=== PATIENT | female | born 1955 | race Caucasian/White ===

== ENCOUNTER 2017-06-21 17:38 | Emergency (ER) | END 2017-06-21 22:19 | disposition home or self-care (01) ==

== ENCOUNTER 2018-07-13 18:05 | Inpatient (IN) | payer OTHER ==
[~2018-07-13] VITALS: Ht 162.6 cm; Wt 90.0 kg
[~2018-07-13 18:05] MED LIST: HYDR-4011 PO; IBUP800T48 PO
[2018-07-13] MEDS ORDERED: SODIUM CHLORIDE 0.9% 1L BAG IV* STA (18:26)
[2018-07-13] MEDS ORDERED: morphine 4 MG/ML VIAL IV STA (18:26)
[2018-07-13] MEDS ORDERED: ONDANSETRON 4 MG INJ IV STA (18:26)
[2018-07-13] MEDS ORDERED: ACETAMINOPHEN 325 MG TAB PO STA (18:26)
[2018-07-13] MEDS ORDERED: IBUPROFEN 800 MG TAB PO ONE (18:30)
--- NOTE | 2018-07-13 18:49 | ERD ---
ER Documentation Chief Complaint Chief Complaint bodyache, flu like symptoms with nausea HPI This is a 62-year-old female with a past medical history of hypertension who presents to the emergency department with 48-hour history of generalized myalgias, nausea, runny nose, nonproductive cough. She states she had a decrease in appetite. She has had a tactile fever with shaking and chills. She took Tylenol Cold and flu just prior to arrival. She said no recent travel. She denies any shortness of breath at rest or exertion. She stated above has felt nauseous but has not experienced any hemoptysis hematemesis no melanotic st ools. She denies any recent sick contacts and no recent hospitalizations. She denies any chest pain. She does state she has a bandlike headache that started after she developed a tactile fever. She states this is not the worst headache of her life. The patient does state however that she felt very lightheaded and felt as though she was in a pass out but denied a complete transient loss of con sciousness. ROS All systems reviewed and are negative except as per history of present illness. Medications Home Meds Active Scripts Hydrocodone/Acetaminophen ([place] 5-325 Tablet) 1 Each Tablet, 1 TAB PO Q6H PRN for PAIN, #20 TAB Prov:ANASTACIO MACHADO PA-C 06/21/17 Ibuprofen* (Motrin*) 800 Mg Tab, 800 MG PO Q6, #30 TAB Prov:ANASTACIO MACHADO PA-C 06/21/17 PMhx/Soc History of Surgery: No Anesthesia Reaction: No Hx Respiratory Disorders: No Hx Cardiac Disorders: Yes (HTN) Hx Psychiatric Problems: No Hx Miscellaneous Medical Probl: Yes Hx Alcohol Use: No Hx Substance Use: No Hx Tobacco Use: No Physical Exam Vitals Vital Signs Date Temp Pulse Resp B/P (MAP) Pulse Ox O2 O2 Flow FiO2 Time Delivery Rate 07/13/18 98.3 88 22 152/78 98 Room Air 2.0 19:30 (102) 07/13/18 98.3 95 20 194/93 96 18:07 (126) Physical Exam Constitutional:Well-developed. Well-nourished. HEENT:Normocephalic. Atraumatic.Pupils were equal round reactive to light. Very dry mucous membranes.No tonsillar exudates. Neck: No nuchal rigidity. No lymphadenopathy. No posterior cervical spine tenderness or step-offs. Respiratory: Not using accessory muscles of respiration.Lungs were clear to auscultation bilaterally. No rhonchi. No rales. No wheezing. Cardiovascular: Regular rate regular rhythm.No murmurs. No rubs were appreciated.S1, S2 normal. Distal pulses are palpable 2+ bilaterally. GI: Abdomen was soft. Nontender. Non Distended. No pulsatile abdominal masses or bruits. No rebound. No guarding. Bowel sounds were present and normal. Muscle skeletal: Full range of motion of both the upper and lower extremities bilaterally.Normal muscle tone.No assymetrical calf tenderness or swelling. Skin: No petechia, no purpura. No lesions on the palms or the soles of the feet. No maculopapular rash. NEURO: Patient was alert, awake, orientated x3.No facial droop. Gait observed and normal with no ataxia.Speech had regular rate and rhythm. No focal neurological deficits. Result Diagram: 07/13/18193607/13/181936 Results 24 hrs Laboratory Tests Test 07/13/18 19:37 07/13/18 19:45 07/13/18 21:15 White Blood Count 3.8 10^3/ul Red Blood Count 4.89 10^6/ul Hemoglobin 13.6 g/dl Hematocrit 41.0 % Mean Corpuscular Volume 83.8 fl Mean Corpuscular Hemoglobin 27.8 pg Mean Corpuscular 33.2 g/dl Hemoglobin Concent Red Cell Distribution Width 13.1 % Platelet Count 159 10^3/UL Mean Platelet Volume 11.5 fl Immature Granulocytes % 0.800 % Neutrophils % 79.5 % Lymphocytes % 10.5 % Monocytes % 8.4 % Eosinophils % 0.3 % Basophils % 0.5 % Nucleated Red Blood Cells % 0.0 /100WBC Immature Granulocytes # 0.030 10^3/ul Neutrophils # 3.0 10^3/ul Lymphocytes # 0.4 10^3/ul Monocytes # 0.3 10^3/ul Eosinophils # 0.0 10^3/ul Basophils # 0.0 10^3/ul Nucleated Red Blood Cells # 0.0 10^3/ul Prothrombin Time 13.4 Sec Prothrombin Time Ratio 1.0 INR International 1.01 Normalized Ratio Activated Partial Thromboplast 33.8 Sec Time Sodium Level 132 mmol/L Potassium Level 2.9 mmol/L Chloride Level 94 mmol/L Carbon Dioxide Level 28 mmol/L Anion Gap 10 Blood Urea Nitrogen 8 mg/dl Creatinine 0.58 mg/dl Est Glomerular Filtrat > 60 mL/min Rate mL/min Glucose Level 120 mg/dl Calcium Level 9.2 mg/dl Total Bilirubin 0.3 mg/dl Direct Bilirubin 0.00 mg/dl Indirect Bilirubin 0.3 mg/dl Aspartate Amino 27 IU/L Transf (AST/SGOT) Alanine 19 IU/L Aminotransferase (ALT/SGPT) Alkaline Phosphatase 78 IU/L Troponin I < 0.012 ng/ml Total Protein 7.5 g/dl Albumin 4.3 g/dl Globulin 3.20 g/dl Albumin/Globulin Ratio 1.34 Amylase Level 61 U/L Lipase 56 U/L POC Venous Lactate 1.1 mmol/L Urine Color YELLOW Urine Clarity CLEAR Urine pH 5.0 Urine Specific [place] 1.009 Urine Ketones TRACE mg/dL Urine Nitrite NEGATIVE mg/dL Urine Bilirubin NEGATIVE mg/dL Urine Urobilinogen NEGATIVE mg/dL Urine Leukocyte Esterase NEGATIVE Leyda/ul Urine Microscopic RBC 2 /HPF Urine Microscopic WBC 1 /HPF Urine Mucus FEW /HPF Urine Hemoglobin 2+ mg/dL Urine Glucose NEGATIVE mg/dL Urine Total Protein NEGATIVE mg/dl Current Medications Medications Dose Sig/Anabel Start Time Status Last (Trade) Ordered Route PRN Stop Time Admin Dose Reason Admin Sodium 2,700 ml BOLUS OVER 2 07/13/18 DC 07/13/18 Chloride HOURS STAT 18:26 18:50 (NS) IV* 07/13/18 18:29 650 mg ONCE STAT 07/13/18 DC 07/13/18 Acetaminophen PO 18:26 18:52 (Tylenol 07/13/18 18:29 Tab) Morphine 4 mg ONCE STAT 07/13/18 DC 07/13/18 Sulfate IV 18:26 18:51 (morphine) 07/13/18 18:29 Ondansetron 4 mg ONCE STAT 07/13/18 DC 07/13/18 HCl (Zofran IV 18:26 18:51 Inj) 07/13/18 18:29 Ibuprofen 800 mg ONCE ONCE 07/13/18 DC 07/13/18 (Motrin) PO 18:30 18:52 07/13/18 18:31 Potassium 100 ml @ ONCE ONCE 07/13/18 07/13/18 Chloride 50 mls/hr IVPB 20:30 21:32 07/13/18 22:29 Ondansetron 4 mg ER BRIDGE 07/13/18 HCl (Zofran PRN IV 22:00 Inj) NAUSEA AND/OR 07/14/18 21:59 VOMITING 650 mg ER BRIDGE 07/13/18 Acetaminophen PRN PO MILD 22:00 (Tylenol PAIN(1-3)OR 07/14/18 21:59 Tab) ELEVATED TEMP Procedures/MDM The patient presented to the emergency department with symptoms suggestive of a near syncope episode as well as a upper respiratory infectionn the differential diagnosis of syncope is vast but my workup considered common benign disorders to life-threatening processes. Therefore my differential diagnosis included but was not limited to reflex-mediated syncope such as vasovagal or carotid sinus syncope from coughing, sneezing, micturition, or GI stimulation (eg, defecation). Other etiologies in my workup included orthostatic hypotension which could cause syncope from an abrupt drop in venous return to heart from volume depletion. An EKG and cardiac enzymes were obtained to rule out cardiac arrhythmias or ischemia. Cardiopulmonary disease such as valvular disease, hypertrophic cardiomyopathy, pericardial tamponade, or pulmonary embolism were considered as a factor causing the patients syncope episode. The patient had no difference in blood pressure in both arms that could suggest aortic dissection or subclavian steal syndrome. Rectal exam was negative for fecal occult blood that could suggest GI bleeding. Ancillary laboratory work was obtained to evaluate for metabolic or electrolyte abnormalities. The patient had no witnessed brief tonic movements that could suggest postictal confusion. The patient was placed on a electronic device monitor, continuous pulse oximetry and IV access established by nursing staff. Patient showed signs of clinical dehydration and was given a 30 cc/kg bolus of normal saline as the patient did have Sirs criteria. However there is no evidence of sepsis. The patient was hypokalemic with potassium 2.9. She was supplemented with IV potassium. I obtained a chest radiograph which showed no infiltrates no pneumothorax or pleural effusion. Given the patient's symptoms with a near-syncope episode and remote history of a cerebrovascular accident that required TPA several years prior to arrival I did feel is necessary to obtain a CT scan of the patient's head. The patient had no focal neurological deficits to suggest strokelike symptoms. CT of the head reviewed by myself the radiologist indicate the following: I obtained a 12-lead EKG tracing to rule out for atypical myocardial infarction. 12 Lead EKG tracing ordered and reviewed by myself showed: Normal sinus rhythm of 92 bpm and no arrhythmia. AR interval normal. QRS duration normal. No ST segment elevation No ST segment depression. No changes consistent with acute ischemia. Departure Diagnosis: Primary Impression: Influenza-like symptoms Additional Impressions: Hypokalemia Near syncope Condition: FRACISCO Claros MD Jul 13, 2018 18:49
[2018-07-13] MEDS ORDERED: POTASSIUM CHLORIDE 100 ML IVPB ONE (20:30)
[2018-07-13 22:00] VITALS: PULSE 79
[2018-07-13] MEDS ORDERED: ACETAMINOPHEN 325 MG TAB PO PRN (22:00)
[2018-07-13] MEDS ORDERED: HYDROCODONE/APAP (5/325) TAB PO PRN (22:00)
[2018-07-13] MEDS ORDERED: ALBUTEROL/IPRATROPIUM (NEB) 3 ML AMP HHN PRN (22:00)
[2018-07-13] MEDS ORDERED: ONDANSETRON 4 MG INJ IV PRN ×2 (22:00)
[2018-07-13] MEDS ORDERED: NACL 0.9% 3 ML SYG IV SCH (22:00)
[2018-07-13] MEDS: ACETAMINOPHEN 325 MG TAB PO PRN (22:55)
--- NOTE | 2018-07-13 23:07 | HP ---
Date/Time of Note Date/Time of Note DATE: 07/13/18 TIME: 23:07 Assessment/Plan VTE Prophylaxis Pharmacological prophylaxis: heparin Lines/Catheters IV Catheter Type (from Nrsg): Saline Lock Assessment/Plan Assessment/Plan 1. Near Syncope, Lightheadedness/dizziness -Multifactorial etiology, including elevated blood pressure, decreased p.o. intake/vomiting -Head CT shows calcified left frontal lesion, which I believe corresponds to the patient's known left frontal hemangioma -Plan is to monitor in the telemetry unit. Obtain 2D echo, carotid Doppler ultrasound and MRI of the brain -will hydrate -Replace potassium -will send additional troponin 2. URI, most likely viral -Supportive care for now. I do not believe antibiotic is warranted at this time 3. Hypertensive urgency: BP better controlled -Continue home meds. Adjust as needed 5. Bilious vomiting: This could be related to lightheadedness/dizziness contributed from #2 -Check KUB to eval for ileus versus very less likely SBO. No BM X 2 days, which is most likely from decreased appetite 6. History of CVA 4 years ago, with residual light lower extremity numbness. On physical exam, he noted also slightly decreased strength -Patient able to ambulate without difficulty according to her and the daughter -Follow-up MRI of the brain -PT eval -Continue aspirin -Check lipid profile. Patient may benefit from statin given her history of CVA event of lipid profile is WNL. Daytime team to decide 7. History of left frontal meningioma -No acute issue 8. History of migraine headache: Currently not complaining of headache -PRN pain meds 9. Hypokalemia: replete Result Diagram: 07/13/18193607/13/181936 Results 24hrs Laboratory Tests Test 07/13/18 19:37 07/13/18 19:45 07/13/18 21:15 White Blood Count 3.8 L Red Blood Count 4.89 Hemoglobin 13.6 Hematocrit 41.0 Mean Corpuscular Volume 83.8 Mean Corpuscular Hemoglobin 27.8 L Mean Corpuscular Hemoglobin Concent 33.2 Red Cell Distribution Width 13.1 Platelet Count 159 Mean Platelet Volume 11.5 H Immature Granulocytes % 0.800 H Neutrophils % 79.5 H Lymphocytes % 10.5 L Monocytes % 8.4 Eosinophils % 0.3 Basophils % 0.5 Nucleated Red Blood Cells % 0.0 Immature Granulocytes # 0.030 Neutrophils # 3.0 Lymphocytes # 0.4 L Monocytes # 0.3 Eosinophils # 0.0 Basophils # 0.0 Nucleated Red Blood Cells # 0.0 Prothrombin Time 13.4 Prothrombin Time Ratio 1.0 INR International Normalized Ratio 1.01 Activated Partial Thromboplast Time 33.8 Sodium Level 132 L Potassium Level 2.9 *L Chloride Level 94 L Carbon Dioxide Level 28 Anion Gap 10 Blood Urea Nitrogen 8 Creatinine 0.58 Est Glomerular Filtrat Rate mL/min > 60 Glucose Level 120 Calcium Level 9.2 Total Bilirubin 0.3 Direct Bilirubin 0.00 Indirect Bilirubin 0.3 Aspartate Amino Transf (AST/SGOT) 27 Alanine Aminotransferase (ALT/SGPT) 19 Alkaline Phosphatase 78 Troponin I < 0.012 Total Protein 7.5 Albumin 4.3 Globulin 3.20 Albumin/Globulin Ratio 1.34 Amylase Level 61 Lipase 56 POC Venous Lactate 1.1 Urine Color YELLOW Urine Clarity CLEAR Urine pH 5.0 Urine Specific [place] 1.009 Urine Ketones TRACE A Urine Nitrite NEGATIVE Urine Bilirubin NEGATIVE Urine Urobilinogen NEGATIVE Urine Leukocyte Esterase NEGATIVE Urine Microscopic RBC 2 Urine Microscopic WBC 1 Urine Mucus FEW A Urine Hemoglobin 2+ H Urine Glucose NEGATIVE Urine Total Protein NEGATIVE HPI/ROS Admit Date/Time Admit Date/Time Jul 13, 2018 at 21:48 Hx of Present Illness This is a 62-year-old female with a history of hypertension, CVA 4 years ago with residual right lower extremity numbness, left frontal meningioma, migraine headache, psoriasis. Patient was brought to the ER complaining of dizziness/lightheadedness X 1 months, cough occasionally productive of white sputum, sore throat and bilious vomiting X 3 days. She complains that the lightheadedness was severe enough for her that she felt she was about to faint but she never lost consciousness. Patient is accompanied by her daughter who also provided history and help with translation. Systolic blood pressure at [facility] today was around 220. Patient reported being compliant with her medications. Denied chest pain, diarrhea. No bowel movements for 2 days which she attributed to decreased p.o. intake. When presented to ER, BP 194/93. Lab shows a WBC of 3.8, potassium 2.9, sodium 132. Influenza negative. Chest x-ray without acute findings. Head CT shows the followin. Calcified cortical lesion with increased attenuation in the adjacent brain parenchyma is seen in the left frontal lobe. 2. Differential considerations include neoplasm. 3. Recommend contrast enhanced MRI examination of the brain for further evaluation. 4. Otherwise, no evident acute process in the head. PMH/Family/Social Past Medical History Medical History: other (See HPI) Medications Current Medications Ondansetron HCl (Zofran Inj) 4 mg ER BRIDGE PRN IV NAUSEA AND/OR VOMITING; Start 07/13/18 at 22:00; Stop 07/14/18 at 21:59 Acetaminophen (Tylenol Tab) 650 mg ER BRIDGE PRN PO MILD PAIN(1-3)OR ELEVATED TEMP; Start 07/13/18 at 22:00; Stop 07/14/18 at 21:59 IV Flush (NS 3 ml) 3 ml PER PROTOCOL IV ; Start 07/13/18 at 22:00 Ondansetron HCl (Zofran Inj) 4 mg Q6H PRN IV NAUSEA AND/OR VOMITING; Start 07/13/18 at 22:00 Aspirin (Aspirin) 81 mg DAILY PO ; Start 07/14/18 at 09:00 Acetaminophen (Tylenol Tab) 650 mg Q6H PRN PO PAIN LEVEL 1-3 OR FEVER Last administered on 07/13/18at 22:55; Admin Dose 650 MG; Start 07/13/18 at 22:00 Albuterol/ Ipratropium (Duoneb) 3 ml Q2H RESP THERAPY PRN HHN SHORTNESS OF BREATH; Start 07/13/18 at 22:00 Acetaminophen/ Hydrocodone Bitart ([place] (5/325)) 1 tab Q6H PRN PO PAIN > 5; Start 07/13/18 at 22:00 Coded Allergies: No Known Allergy (Unverified , 07/13/18) Past Surgical History Past Surgical Hx: other (See HPI) Family History Significant Family History: other (See HPI) Social History Alcohol Use: none Smoking Status: Unknown if ever smoked Drug Use: none Exam/Review of Systems Vital Signs Vitals Vital Signs Date Temp Pulse Resp B/P (MAP) Pulse Ox O2 O2 Flow FiO2 Time Delivery Rate 07/13/18 77 14 127/72 100 Room Air 3.0 22:11 (90) 07/13/18 98.3 19:30 Exam Constitutional: alert, oriented Head: normocephalic, atraumatic Eyes: EOMI, PERRL Respiratory: clear to auscultation, normal air movement Cardiovascular: regular rate and rhythm, nl pulses Gastrointestinal: soft, non-tender Extremities: normal pulses Neurological: other (Right lower extremity numbness of the thigh. Also noted decreased strength) DAI CAIN MD Jul 13, 2018 23:07
[2018-07-13] MEDS: ZOLPIDEM 5 MG TAB PO PRN (23:22)
[2018-07-13 23:28] VITALS: Ht 162.6 cm; Wt 90.0 kg
[2018-07-13 23:32] VITALS: BP 137/68; PULSE 71; RESP 17
[2018-07-14] VITALS (9 sets, daily range): BP systolic 124–157; BP diastolic 61–74; PULSE 62–101; RESP 18–20
--- NOTE | 2018-07-14 06:54 | NUR ---
end of shift note: received pt from ER around 2300, pt alert oriented x4, was ambulating previous admission, pt remain bedrest overnight due to generalized weakness, pt came in for flu like symptoms, and hypokalemia, 20mg potassium sulfate given, no longer having temperature, family at bedside, vital stable. continue to monitor pt
[2018-07-14] MEDS: ACETAMINOPHEN 325 MG TAB PO PRN ×2 (08:44→23:03)
[2018-07-14] MEDS: ASPIRIN 81 MG TAB PO SCH (08:44)
[2018-07-14] MEDS: AMLODIPINE 10 MG TAB PO SCH (08:44)
[2018-07-14] MEDS: POTASSIUM CHLORIDE (SR) 20 MEQ TAB PO SCH ×3 (11:22→15:25)
--- NOTE | 2018-07-14 14:19 | NUR ---
RN NOTES: Patient is in MRI & as per transportation project manager, patient is very anxious while they are doing MRI. Patient has no order for prn anti anxiet meds. Paged & left message to Dr Do, awaiting to call back.
--- NOTE | 2018-07-14 15:00 | NUR ---
RN NOTES: As per patient & daughter, patient vomited potassium tablet that was given in the morning & refused to take the 2nd dose. Called & spoke with Dr Do with orders received to change potassium to IV and carried out.
[2018-07-14] MEDS: CEFTRIAXONE 1 GM/50 ML (PMX) 50 ML IVPB SCH (15:24)
--- NOTE | 2018-07-14 15:35 | NUR ---
RN NOTES: Patient was able to tolerate MRI Brain as ordered without ativan given. To continue monitoring.
--- NOTE | 2018-07-14 18:25 | NUR ---
EOSS: Patient stable on bed, not in distress. Denies pain/discomfort for now. Still awaiting potassium IV from pharmacy, called 2x already. All needs attended well. Continued monitoring per plan of care.
[2018-07-14] MEDS: POTASSIUM CHLORIDE 100 ML IVPB SCH ×2 (18:50→19:00)
--- NOTE | 2018-07-14 19:23 | PN ---
Date/Time of Note Date/Time of Note DATE: 07/14/18 TIME: 19:10 Assessment/Plan VTE Prophylaxis Risk score (from [facility])>0 risk: 3 SCD applied (from [facility]): Yes Pharmacological prophylaxis: NA/contraindicated Pharm contraindication: other Lines/Catheters [facility] Saline Lock Assessment/Plan Hospital Course 1. Sepsis with presyncope as well as nausea vomiting secondary to UTI and/or viral syndrome -UA is normal urine culture is growing gram-negative rods -Start empiric Rocephin, follow-up on culture specifics -Carotid Doppler and MRI of the brain showed no acute findings -KUB is negative -IV fluids-NS with potassium 2. URI likely viral -Supportive care 3. Hypertensive urgency: BP better controlled -Continue home meds. Adjust as needed 4. Leukopenia possibly secondary to sepsis -Monitor 5. Transaminitis -Possibly viral -Check hepatitis panel 6. History of left frontal meningioma and/or CVA 4 years ago with residual right lower extremity numbness -No acute issues -MRI does show meningioma versus other dural based lesion, no acute findings noted -Patient is able to ambulate -PT eval -LDL below 100, A1c is normal -Continue aspirin 7. History of migraine headache: Currently not complaining of headache -PRN pain meds 8. Hypokalemia -Replete Prophylaxis: SCDs Result Diagram: 07/14/18 0550 07/14/18 0550 Results 24hrs Laboratory Tests Test 07/13/18 19:37 07/13/18 19:45 07/13/18 21:15 07/13/18 22:45 White Blood Count 3.8 L Red Blood Count 4.89 Hemoglobin 13.6 Hematocrit 41.0 Mean Corpuscular 83.8 Volume Mean Corpuscular 27.8 L Hemoglobin Mean Corpuscular 33.2 Hemoglobin Concent Red Cell 13.1 Distribution Width Platelet Count 159 Mean Platelet Volume 11.5 H Immature 0.800 H Granulocytes % Neutrophils % 79.5 H Lymphocytes % 10.5 L Monocytes % 8.4 Eosinophils % 0.3 Basophils % 0.5 Nucleated Red Blood 0.0 Cells % Immature 0.030 Granulocytes # Neutrophils # 3.0 Lymphocytes # 0.4 L Monocytes # 0.3 Eosinophils # 0.0 Basophils # 0.0 Nucleated Red Blood 0.0 Cells # Prothrombin Time 13.4 Prothrombin Time 1.0 Ratio INR International 1.01 Normalized Ratio Activated 33.8 Partial Thromboplast Time Sodium Level 132 L Potassium Level 2.9 *L Chloride Level 94 L Carbon Dioxide Level 28 Anion Gap 10 Blood Urea Nitrogen 8 Creatinine 0.58 Est Glomerular > 60 Filtrat Rate mL/min Glucose Level 120 Calcium Level 9.2 Total Bilirubin 0.3 Direct Bilirubin 0.00 Indirect Bilirubin 0.3 Aspartate Amino 27 Transf (AST/SGOT) Alanine 19 Aminotransferase (AL T/SGPT) Alkaline Phosphatase 78 Troponin I < 0.012 < 0.012 Total Protein 7.5 Albumin 4.3 Globulin 3.20 Albumin/Globulin 1.34 Ratio Amylase Level 61 Lipase 56 POC Venous Lactate 1.1 Urine Color YELLOW Urine Clarity CLEAR Urine pH 5.0 Urine Specific 1.009 [place] Urine Ketones TRACE A Urine Nitrite NEGATIVE Urine Bilirubin NEGATIVE Urine Urobilinogen NEGATIVE Urine Leukocyte NEGATIVE Esterase Urine Microscopic 2 RBC Urine Microscopic 1 WBC Urine Mucus FEW A Urine Hemoglobin 2+ H Urine Glucose NEGATIVE Urine Total Protein NEGATIVE Creatine Kinase 37 Creatine Kinase 0.8 Index Creatinine Kinase MB 0.28 (Mass) Test 07/14/18 05:50 White Blood Count 2.4 #L Red Blood Count 4.83 Hemoglobin 13.4 Hematocrit 40.9 Mean Corpuscular 84.7 Volume Mean Corpuscular 27.7 L Hemoglobin Mean Corpuscular 32.8 Hemoglobin Concent Red Cell 13.2 Distribution Width Platelet Count 149 Mean Platelet Volume 11.1 H Immature 0.400 Granulocytes % Neutrophils % Segmented 60 Neutrophils % (Manual) Band Neutrophils % 3 (Manual) Lymphocytes % Lymphocytes % 24 (Manual) Monocytes % Monocytes % (Manual) 9 Eosinophils % Basophils % Basophils % (Manual) 2 Metamyelocytes % 2 H (manual) Nucleated Red Blood 0.0 Cells % Immature 0.010 Granulocytes # Neutrophils # Neutrophils # 1.4 L (Manual) Band Neutrophils # 0.0 Lymphocytes (Manual) 0.5 L Lymphocytes # Monocytes # Monocytes # (Manual) 0.2 L Eosinophils # Basophils # Basophils # (Manual) 0.0 Metamyelocytes # 0.0 Nucleated Red Blood Cells # Platelet Estimate NORMAL Giant Platelets 2 H Polychromasia 2+ Poikilocytosis 1+ Anisocytosis 1+ Sodium Level 137 Potassium Level 3.0 L Chloride Level 100 Carbon Dioxide Level 26 Anion Gap 11 Blood Urea Nitrogen 13 Creatinine 0.83 Est Glomerular > 60 Filtrat Rate mL/min Glucose Level 105 Hemoglobin A1c 5.4 Calcium Level 9.0 Magnesium Level 1.9 Total Bilirubin 0.2 Direct Bilirubin 0.00 Indirect Bilirubin 0.2 Aspartate Amino 113 H Transf (AST/SGOT) Alanine 99 H Aminotransferase (AL T/SGPT) Alkaline Phosphatase 88 Creatine Kinase 32 Creatine Kinase 0.8 Index Creatinine Kinase MB 0.25 (Mass) Troponin I < 0.012 Total Protein 6.5 # Albumin 3.8 Globulin 2.70 Albumin/Globulin 1.40 Ratio Triglycerides Level 69 Cholesterol Level 170 LDL Cholesterol, 96 Calculated HDL Cholesterol 60 Cholesterol/HDL 2.8 Ratio Thyroid Stimulating 0.749 Hormone (TSH) Subjective 24 Hr Interval Summary Gastrointestinal: nausea Exam/Review of Systems Vital Signs Vitals Vital Signs Date Temp Pulse Resp B/P (MAP) Pulse Ox O2 O2 Flow FiO2 Time Delivery Rate 07/14/18 2.0 18:08 07/14/18 88 16:11 07/14/18 98.7 18 138/69 94 Nasal 15:09 (92) Cannula Intake and Output 07/13/18 07/13/18 07/14/18 1515:00 23:00 07:00 IntakeIntake Total 340 ml BalanceBalance 340 ml Exam Constitutional: alert, oriented Respiratory: clear to auscultation Cardiovascular: regular rate and rhythm Gastrointestinal: soft; No distended Musculoskeletal: nl extremities to inspection Medications Medications Current Medications IV Flush (NS 3 ml) 3 ml PER PROTOCOL IV ; Start 07/13/18 at 22:00 Ondansetron HCl (Zofran Inj) 4 mg Q6H PRN IV NAUSEA AND/OR VOMITING Last administered on 07/14/18at 08:41; Admin Dose 4 MG; Start 07/13/18 at 22:00 Aspirin (Aspirin) 81 mg DAILY PO Last administered on 07/14/18at 08:44; Admin Dose 81 MG; Start 07/14/18 at 09:00 Acetaminophen (Tylenol Tab) 650 mg Q6H PRN PO PAIN LEVEL 1-3 OR FEVER Last administered on 07/14/18at 08:44; Admin Dose 650 MG; Start 07/13/18 at 22:00 Albuterol/ Ipratropium (Duoneb) 3 ml Q2H RESP THERAPY PRN HHN SHORTNESS OF BREATH; Start 07/13/18 at 22:00 Acetaminophen/ Hydrocodone Bitart ([place] (5/325)) 1 tab Q6H PRN PO PAIN > 5; Start 07/13/18 at 22:00 Zolpidem Tartrate (Ambien) 5 mg HS MAY REPEAT X 1 PRN PO INSOMNIA Last administered on 07/13/18at 23:22; Admin Dose 5 MG; Start 07/13/18 at 23:30 Influenza Virus Vaccine Quadrival (Fluzone) 0.5 ml ONCE ONCE IM* ; Start 9 at 10:00; Stop 07/15/18 at 10:01 Amlodipine Besylate (Norvasc) 10 mg DAILY PO Last administered on 07/14/18at 08:44; Admin Dose 10 MG; Start 07/14/18 at 09:00 Ceftriaxone Sodium 50 ml @ 100 mls/hr Q24H IVPB Last administered on 07/14/18at 15:24; Admin Dose 100 MLS/HR; Start 07/14/18 at 15:00 Potassium Chloride 100 ml @ 50 mls/hr Q2H IVPB Last administered on 07/14/18at 18:50; Admin Dose 50 MLS/HR; Start 07/14/18 at 17:00; Stop 07/14/18 at 20:59 GEMINI BESS Jul 14, 2018 19:23
[2018-07-14] MEDS: POTASSIUM CHLORIDE 40 MEQ in SOD CHLORIDE 0.9% 1,000 ML IV SCH (20:30)
[2018-07-15] VITALS (9 sets, daily range): BP systolic 122–154; BP diastolic 64–77; PULSE 67–95; RESP 18–20
[2018-07-15] MEDS: POTASSIUM CHLORIDE 40 MEQ in SOD CHLORIDE 0.9% 1,000 ML IV SCH ×3 (03:41→17:55)
--- NOTE | 2018-07-15 06:27 | NUR ---
Pt AAOX4 , admitted due flu like S/S, hypokalemia, KCL IVdrip started yesterday tolerating well, V/S stable, no C/O chest pain or SOB,Will endorsed to oncoming Am shift.
[2018-07-15] MEDS: AMLODIPINE 10 MG TAB PO SCH (09:12)
[2018-07-15] MEDS: ASPIRIN 81 MG TAB PO SCH (09:12)
--- NOTE | 2018-07-15 09:57 | RADRPT ---
Echocardiogram Report Patient Name: KELLEE ORTIZ Gender: Female Date: 1955 Study Date: 14-Jul-2018 Jewelry Consultant: Wade Arrington RDCS Location: [address] Ref. Physician: DAI CAIN Quality: Adequate Procedures: Transthoracic echocardiogram with complete 2D, M-Mode, and doppler examination. Indications: Congestive Heart Failure. 2D/M Mode Doppler Measurement Value Normal Ranges Measurement Value Normal Ranges LVIDd 2D 3.4 3.5 - 5.6 cm AV Peak Brijesh 1.6 m/sec LVIDs 2D 2.2 2.1 - 4.1 cm AV Peak PG 11.0 mmHg LVPWd 2D 1.2 0.6 - 1.1 cm LVOT Peak Brijesh 1.0 m/sec IVSd 2D 1.2 0.6 - 1.1 cm LVOT Peak PG 4.0 mmHg AoR Diam 2D 2.2 2.0 - 3.7 cm MV E Peak Brijesh 0.6 m/sec LA/Ao 2D 2 0 - 1 MV A Peak Brijesh 0.7 m/sec LA Dimen 2D 3.8 2.3 - 4.0 cm MV E/A 0.9 MV Decel Time 222 msec Lat E` Brijesh 0.1 m/sec Lateral E/E` 5.9 Med E` Brijesh 0.1 m/sec MV E/A 0.9 Findings Left Ventricle: Normal left ventricular systolic function. Normal left ventricular cavity size. Mild concentric left ventricular hypertrophy. Ejection fraction is visually estimated at 55 %. Tissue Doppler/Mitral Doppler indices are consistent with impaired relaxation (Stage I diastolic dysfunction). Right Ventricle: Normal right ventricular size. Normal right ventricular systolic function. Left Atrium: The left atrium is normal in size. Right Atrium: The right atrium is normal in size. Mitral Valve: Normal appearance of the mitral valve. No mitral valve regurgitation is seen. Aortic Valve: Normal appearance of the aortic valve. No aortic regurgitation. Tricuspid Valve: Normal appearance of the tricuspid valve. No evidence of tricuspid regurgitation. Pulmonic Valve: Normal pulmonic valve appearance. No evidence of pulmonic regurgitation. Pericardium: Normal pericardium with no significant pericardial effusion. Aorta: Normal aortic root. IVC: Normal size and normal respiratory collapse consistent with normal right atrial pressure. Conclusions Normal left ventricular systolic function. Normal left ventricular cavity size. Mild concentric left ventricular hypertrophy. Ejection fraction is visually estimated at 55 %. Tissue Doppler/Mitral Doppler indices are consistent with impaired relaxation (Stage I diastolic dysfunction). Normal appearance of the tricuspid valve. No evidence of tricuspid regurgitation. Normal appearance of the mitral valve. No mitral valve regurgitation is seen. Electronically Signed By: All Skinner 15-Jul-2018 09:56:50 -0800 Patient Name: KELLEE ORTIZ Study Date: 14-Jul-2018 [id number]
--- NOTE | 2018-07-15 10:36 | NUR ---
PT EVALUATION , Therapy day number 1 Evaluation Start Time 10:00 Evaluation Total Time 0 min Subjective Current complaint of pain Pain Scale NUMERIC Pain Intensity 3 (0-10) Patient Stated Goal for Pain Relief 0 (0-10) Pain Level Comment RLE , RT [facility] Pre Treatment Vital Signs Stable Yes - BP:144/71 HR:80 Exercise Assessment Label Bilat Lower Extremity Exercise Type Active ROM Additional Exercise Comments AP, KNEE FLEX, EXT, SAQ , SLR, LAQ Supine to Sit Minimum Assist Transfer Sit to Stand Ability Minimum Assist Bed Mobility Sit to Supine Minimum Assist Bed Transfer Ability Minimum Assist Chair Transfer Ability Minimum Assist Sitting Tolerance 15 min Patient uses wheelchair Not Applicable Gait Assist Levels Contact Guard Assist Assistive Devices Front Wheel Walker Ambulation Distance 50 feet Additional Gait Comments SLOW FARSHAD , LIMITED GAIT DISTANCE DUE TO GENERALIZED WEAKNESS. Weight Bearing Assessment Label Bilat Lower Extremity Weight Bearing Status Full Weight Bearing Static Sitting Balance Good Dynamic Sitting Balance Good Standing Static Balance Good Dynamic Standing Balance Fair plus Additional Balance Assessments Comments WITHOUT AD ( WITH FWW DYNAMIC STANDING BALANCE : GOOD) . Safety Judgement Good Activity Tolerance Fair Equipment Present A pump IV pump Post Treatment Pain Intensity 3 0-10 Quality Indicators Dizziness Light headedness Variance Documentation P/S SEE PT NOTE . PT Technical Record Comment , PT EVALUATION , RN CLEARED , PATIENT AGREEABLE , FAMILY AT BED SIDE . PATIENT IS A 62 Y/O FEMALE ALERT AND ORIENTED TO SELF , SITUATION , WITH PMH:HTN , H.OF CVA 4 YEARS AGO, H.OF LT FRONTAL MENINGIOMA, H.OF MIGRAINE HEADACHE, [facility]UE TO NEAR SYNCOPE, LIGHT HEADEDNESS AND AND DIZZINESS , BRAIN MRI REVEALED NO ACUTE INFARCT OR INTRACRANIAL HEMORRHAGE ALSO BRAIN CT WAS NEGATIVE ,P/S SEE PT NOTE FOR PATIENT'S FUNCTIONAL STATUS , GAIT TR W/FWW PERFORMED 50' WITH CGA AND OCC.VC'S TO INCREASE STEP LENGTH , GAIT DISTANCE W/FWW LIMITED DUE TO GENERALIZED WEAKNESS, AND LIGHT HEADEDNESS , PATIENT'S DAUGHTER INTERFERING IN PT SESSION AND RECOMMENDATION , AND UNWILLING HER MOTHER TO USE FWW . PATIENT IS HIGH RISK FALL IF AMBULATE WITHOUT AD , RN NOTIFIED PATIENT'S FUNCTIONAL STATUS , PATIENT IS CLEARED TO AMBULATE WITH NSG STAFF W/FWW . A: PATIENT LIVES WITH FAMILY IN A HOUSE WITH NO STAIR TO ENTER AND HAS BEEN FUNCTIONAL AND AMBULATORY WITHOUT AD, PLAN TO RETURN HOME ONCE CLEARED BY MD PT RECOMMEND HH PT VS OUT PATIENT PT FOLLOW UP , PATIENT MAY NEED FWW ( PENDING HER PROGRESS0. P: PT DAILY X5 ( THERA EXE'S , TRANSFER TR, GAIT TR WITH FWW AND ADVANCE TO GAIT TR WITHOUT AD , WHEN ABLE , PATIENT EDUCATION AND TRAINING ).
[2018-07-15] MEDS: CEFTRIAXONE 1 GM/50 ML (PMX) 50 ML IVPB SCH (15:06)
--- NOTE | 2018-07-15 16:40 | CONS ---
Assessment/Plan Assessment/Plan Hospital Course 62 yo F with multiple comorbidities who presents for evaluation of 1 month of dizziness, for which neurology is consulted. The clinical picture suggests a nonspecific dizziness. MRI brain is reassuringly without obvious acute intracranial pathology. P: Ok to defer additional neuroimaging for now asa/statin daily for secondary stroke prevention.. Other stroke risk factor modification per primary; goal BP < 130/80, Goal LDL < 70... Will follow clinically Result Diagram: 07/15/18 0605 07/15/18 0605 Results 24hrs Laboratory Tests Test 07/15/18 06:05 White Blood Count 3.1 #L Red Blood Count 5.12 Hemoglobin 14.1 Hematocrit 44.2 Mean Corpuscular Volume 86.3 Mean Corpuscular Hemoglobin 27.5 L Mean Corpuscular Hemoglobin Concent 31.9 L Red Cell Distribution Width 13.2 Platelet Count 168 Mean Platelet Volume 11.1 H Immature Granulocytes % 0.000 L Neutrophils % 52.5 Lymphocytes % 32.9 Monocytes % 14.0 H Eosinophils % 0.3 Basophils % 0.3 Nucleated Red Blood Cells % 0.0 Immature Granulocytes # 0.000 Neutrophils # 1.6 Lymphocytes # 1.0 Monocytes # 0.4 Eosinophils # 0.0 Basophils # 0.0 Nucleated Red Blood Cells # 0.0 Sodium Level 136 Potassium Level 4.3 Chloride Level 99 Carbon Dioxide Level 30 Anion Gap 7 Blood Urea Nitrogen 14 Creatinine 0.66 Est Glomerular Filtrat Rate mL/min > 60 Glucose Level 89 Calcium Level 8.9 Phosphorus Level 3.8 Magnesium Level 1.9 Total Bilirubin 0.2 Direct Bilirubin 0.00 Indirect Bilirubin 0.2 Aspartate Amino Transf (AST/SGOT) 52 H Alanine Aminotransferase (ALT/SGPT) 75 H Alkaline Phosphatase 77 Total Protein 7.3 Albumin 3.9 Globulin 3.40 H Albumin/Globulin Ratio 1.14 Hepatitis B Surface Antigen NEGATIVE Hepatitis B Core Total Antibody REACTIVE H Hepatitis C Antibody REACTIVE H Consultation Date/Type/Reason Admit Date/Time Jul 13, 2018 at 21:48 Type of Consult Neurology Reason for Consultation persistent dizziness Requesting Provider: APOLLO PEREZ Date/Time of Note DATE: 07/15/18 TIME: 16:40 Hx of Present Illness 62 yo F with hx of CVA, HTN, and other comorbidities who presented to the ED with dizziness and lightheadedness x 1 month. History was obtained from pt and chart review, as pt is a limited historian. It is elsewhere noted: Hx of Present Illness This is a 62-year-old female with a history of hypertension, CVA 4 years ago with residual right lower extremity numbness, left frontal meningioma, migraine headache, psoriasis. Patient was brought to the ER complaining of dizziness/lightheadedness X 1 months, cough occasionally productive of white sputum, sore throat and bilious vomiting X 3 days. She complains that the lightheadedness was severe enough for her that she felt she was about to faint but she never lost consciousness. Patient is accompanied by her daughter who also provided history and help with translation. Systolic blood pressure at home today was around 220. Patient reported being compliant with her medi cations. Denied chest pain, diarrhea. No bowel movements for 2 days which she attributed to decreased p.o. intake. When presented to ER, BP 194/93. Lab shows a WBC of 3.8, potassium 2.9, sodium 132. Influenza negative. Chest x-ray without acute findings. Head CT shows the followin. Calcified cortical lesion with increased attenuation in the adjacent brain parenchyma is seen in the left frontal lobe. 2. Differential considerations include neoplasm. 3. Recommend contrast enhanced MRI examination of the brain for further evaluation. 4. Otherwise, no evident acute process in the head. negative unless noted otherwise in HPI Exam/Review of Systems Vital Signs Vitals Vital Signs Date Temp Pulse Resp B/P (MAP) Pulse Ox O2 O2 Flow FiO2 Time Delivery Rate 07/15/18 82 16:00 07/15/18 98.4 20 122/69 93 15:33 (86) 07/14/18 2.0 18:08 07/14/18 Nasal 15:09 Cannula Intake and Output 07/14/18 07/14/18 07/15/18 1515:00 23:00 07:00 IntakeIntake Total 400 ml BalanceBalance 400 ml Exam PE: Gen Appearance: No Apparent Distress HEENT: Normocephalic Cardiovascular: Regular rate Abdomen: Soft Extremities: Dry NE: The patient was alert and oriented.. Language was normal. Fund of knowledge was normal. Pupils were equal and reactive to light. There was no afferent pupillary defect. Visual garcia were normal. Funduscopic examination was limited. Extra-ocular movements were full. Ptosis was absent. There was no nystagmus. Facial sensation was normal. Face was symmetric with normal strength. Hearing was intact. Palate movements were normal. Neck strength was normal. There was normal tongue bulk and speed of movement. Tone was normal. Muscle bulk was normal. I did not see fasciculations. Arms were mildly weak to confrontation and symmetric; legs were weak (R>L). Vibration sensation was normal. Temperature and pinprick sensation was normal. Rapid alternating movements were normal. There was no dysmetria. There was no intention tremor. Gait was deferred due to bedrest. Arm and leg reflexes were 2+ and symmetric. Barnard's sign was absent. Plantar responses were flexor. Medications Medications Current Medications IV Flush (NS 3 ml) 3 ml PER PROTOCOL IV ; Start 07/13/18 at 22:00 Ondansetron HCl (Zofran Inj) 4 mg Q6H PRN IV NAUSEA AND/OR VOMITING Last administered on 07/14/18 08:41; Admin Dose 4 MG; Start 07/13/18 at 22:00 Aspirin (Aspirin) 81 mg DAILY PO Last administered on 07/15/18 09:12; Admin Dose 81 MG; Start 07/14/18 at 09:00 Acetaminophen (Tylenol Tab) 650 mg Q6H PRN PO PAIN LEVEL 1-3 OR FEVER Last administered on 07/14/18 23:03; Admin Dose 650 MG; Start 07/13/18 at 22:00 Albuterol/ Ipratropium (Duoneb) 3 ml Q2H RESP THERAPY PRN HHN SHORTNESS OF BREATH; Start 07/13/18 at 22:00 Acetaminophen/ Hydrocodone Bitart ([place] (5/325)) 1 tab Q6H PRN PO PAIN > 5; Start 07/13/18 at 22:00 Zolpidem Tartrate (Ambien) 5 mg HS MAY REPEAT X 1 PRN PO INSOMNIA Last administered on 07/13/18 23:22; Admin Dose 5 MG; Start 07/13/18 at 23:30 Amlodipine Besylate (Norvasc) 10 mg DAILY PO Last administered on 07/15/18 09:12; Admin Dose 10 MG; Start 07/14/18 at 09:00 Ceftriaxone Sodium 50 ml @ 100 mls/hr Q24H IVPB Last administered on 07/15/18at 15:06; Admin Dose 100 MLS/HR; Start 07/14/18 at 15:00 Potassium Chloride 40 meq/ Sodium Chloride 1,000 ml @ 100 mls/hr Q10H IV Last administered on 07/15/18at 03:41; Admin Dose 100 MLS/HR; Start 07/14/18 at 20:30 Imaging Imaging MRI brain reviewed: IMPRESSION: Evaluation is limited without intravenous contrast. 1. No acute infarction intracranial hemorrhage. 2. Minimal chronic microvascular ischemic changes. 3. Subcentimeter left frontal calcified lesion which may represent a meningioma versus other dural based lesion. Postcontrast imaging may be performed as clin ically warranted. Comparison with prior imaging may also be helpful which is unavailable. Past Medical History reviewed Medical History: other (See HPI) Medications Current Medications IV Flush (NS 3 ml) 3 ml PER PROTOCOL IV ; Start 07/13/18 at 22:00 Ondansetron HCl (Zofran Inj) 4 mg Q6H PRN IV NAUSEA AND/OR VOMITING Last administered on 07/14/18 08:41; Admin Dose 4 MG; Start 07/13/18 at 22:00 Aspirin (Aspirin) 81 mg DAILY PO Last administered on 07/15/18at 09:12; Admin Dose 81 MG; Start 07/14/18 at 09:00 Acetaminophen (Tylenol Tab) 650 mg Q6H PRN PO PAIN LEVEL 1-3 OR FEVER Last administered on 07/14/18at 23:03; Admin Dose 650 MG; Start 07/13/18 at 22:00 Albuterol/ Ipratropium (Duoneb) 3 ml Q2H RESP THERAPY PRN HHN SHORTNESS OF BREATH; Start 07/13/18 at 22:00 Acetaminophen/ Hydrocodone Bitart ([place] (5/325)) 1 tab Q6H PRN PO PAIN > 5; Start 07/13/18 at 22:00 Zolpidem Tartrate (Ambien) 5 mg HS MAY REPEAT X 1 PRN PO INSOMNIA Last administered on 07/13/18at 23:22; Admin Dose 5 MG; Start 07/13/18 at 23:30 Amlodipine Besylate (Norvasc) 10 mg DAILY PO Last administered on 07/15/18at 09:12; Admin Dose 10 MG; Start 07/14/18 at 09:00 Ceftriaxone Sodium 50 ml @ 100 mls/hr Q24H IVPB Last administered on 07/15/18at 15:06; Admin Dose 100 MLS/HR; Start 07/14/18 at 15:00 Potassium Chloride 40 meq/ Sodium Chloride 1,000 ml @ 100 mls/hr Q10H IV Last administered on 07/15/18at 03:41; Admin Dose 100 MLS/HR; Start 07/14/18 at 20:30 Allergies: Coded Allergies: No Known Allergy (Unverified , 07/13/18) Past Surgical History reviewed Past Surgical Hx: other (See HPI) Social History reviewed Alcohol Use: none Smoking Status: Unknown if ever smoked Drug Use: none EBONY WADE NP Jul 15, 2018 16:40 JAH HYATT Jul 15, 2018 19:35
--- NOTE | 2018-07-15 17:11 | NUR ---
EOSS;HEMODYNAMICS STABLE;NSR;DENIES PAIN;PT CON'T TO HAVE DIZZYNESS;PT ON RA 93%;HOURLY ROUNDING;SELF TURNING;CON'T POC
--- NOTE | 2018-07-15 17:27 | PN ---
Date/Time of Note Date/Time of Note DATE: 07/15/18 TIME: 17:20 Assessment/Plan VTE Prophylaxis Risk score (from Ns)>0 risk: 3 SCD applied (from Ns): Yes Pharmacological prophylaxis: LMWH Lines/Catheters IV Catheter Type (from Nrs): Saline Lock Assessment/Plan Assessment/Plan 1. dizziness, presyncope as well as nausea vomiting -patient still complaining of dizziness 2. Sepsis with secondary to UTI and/or viral syndrome 3. Hypertensive urgency: BP better controlled -Continue home meds. Adjust as needed 4. Leukopenia possibly secondary to sepsis -Monitor 5. Transaminitis -Hep B core and Hep C antibodies + -will need f/u outpatient will GI 6. History of left frontal meningioma and/or CVA 4 years ago with residual right lower extremity numbness -No acute issues -MRI does show meningioma versus other dural based lesion, no acute findings noted -Patient is able to ambulat -LDL below 100, A1c is normal -Continue aspirin 7. History of migraine headache: Currently not complaining of headache -PRN pain meds Dispo: still c/o dizziness, will get neurology eval. doesn't want to do MRI +contrast continue abx Result Diagram: 07/15/18 0605 07/15/18 0605 Results 24hrs Laboratory Tests Test 07/15/18 06:05 White Blood Count 3.1 #L Red Blood Count 5.12 Hemoglobin 14.1 Hematocrit 44.2 Mean Corpuscular Volume 86.3 Mean Corpuscular Hemoglobin 27.5 L Mean Corpuscular Hemoglobin Concent 31.9 L Red Cell Distribution Width 13.2 Platelet Count 168 Mean Platelet Volume 11.1 H Immature Granulocytes % 0.000 L Neutrophils % 52.5 Lymphocytes % 32.9 Monocytes % 14.0 H Eosinophils % 0.3 Basophils % 0.3 Nucleated Red Blood Cells % 0.0 Immature Granulocytes # 0.000 Neutrophils # 1.6 Lymphocytes # 1.0 Monocytes # 0.4 Eosinophils # 0.0 Basophils # 0.0 Nucleated Red Blood Cells # 0.0 Sodium Level 136 Potassium Level 4.3 Chloride Level 99 Carbon Dioxide Level 30 Anion Gap 7 Blood Urea Nitrogen 14 Creatinine 0.66 Est Glomerular Filtrat Rate mL/min > 60 Glucose Level 89 Calcium Level 8.9 Phosphorus Level 3.8 Magnesium Level 1.9 Total Bilirubin 0.2 Direct Bilirubin 0.00 Indirect Bilirubin 0.2 Aspartate Amino Transf (AST/SGOT) 52 H Alanine Aminotransferase (ALT/SGPT) 75 H Alkaline Phosphatase 77 Total Protein 7.3 Albumin 3.9 Globulin 3.40 H Albumin/Globulin Ratio 1.14 Hepatitis B Surface Antigen NEGATIVE Hepatitis B Core Total Antibody REACTIVE H Hepatitis C Antibody REACTIVE H Exam/Review of Systems Vital Signs Vitals Vital Signs Date Temp Pulse Resp B/P (MAP) Pulse Ox O2 O2 Flow FiO2 Time Delivery Rate 07/15/18 82 16:00 07/15/18 98.4 20 122/69 93 15:33 (86) 07/14/18 2.0 18:08 07/14/18 Nasal 15:09 Cannula Intake and Output 07/14/18 07/14/18 07/15/18 1515:00 23:00 07:00 IntakeIntake Total 400 ml BalanceBalance 400 ml Medications Medications Current Medications IV Flush (NS 3 ml) 3 ml PER PROTOCOL IV ; Start 07/13/18 at 22:00 Ondansetron HCl (Zofran Inj) 4 mg Q6H PRN IV NAUSEA AND/OR VOMITING Last administered on 07/14/18at 08:41; Admin Dose 4 MG; Start 07/13/18 at 22:00 Aspirin (Aspirin) 81 mg DAILY PO Last administered on 07/15/18 09:12; Admin Dose 81 MG; Start 07/14/18 at 09:00 Acetaminophen (Tylenol Tab) 650 mg Q6H PRN PO PAIN LEVEL 1-3 OR FEVER Last administered on 07/14/18at 23:03; Admin Dose 650 MG; Start 07/13/18 at 22:00 Albuterol/ Ipratropium (Duoneb) 3 ml Q2H RESP THERAPY PRN HHN SHORTNESS OF BREATH; Start 07/13/18 at 22:00 Acetaminophen/ Hydrocodone Bitart ([place] (5/325)) 1 tab Q6H PRN PO PAIN > 5; Start 07/13/18 at 22:00 Zolpidem Tartrate (Ambien) 5 mg HS MAY REPEAT X 1 PRN PO INSOMNIA Last administered on 07/13/18at 23:22; Admin Dose 5 MG; Start 07/13/18 at 23:30 Amlodipine Besylate (Norvasc) 10 mg DAILY PO Last administered on 07/15/18at 09:12; Admin Dose 10 MG; Start 07/14/18 at 09:00 Ceftriaxone Sodium 50 ml @ 100 mls/hr Q24H IVPB Last administered on 07/15/18at 15:06; Admin Dose 100 MLS/HR; Start 07/14/18 at 15:00 Potassium Chloride 40 meq/ Sodium Chloride 1,000 ml @ 100 mls/hr Q10H IV Last administered on 07/15/18at 03:41; Admin Dose 100 MLS/HR; Start 07/14/18 at 20:30 APOLLO PEREZ Jul 15, 2018 17:27
[2018-07-16] VITALS (9 sets, daily range): BP systolic 132–160; BP diastolic 67–88; PULSE 69–84; RESP 19–21
[2018-07-16] MEDS: ZOLPIDEM 5 MG TAB PO PRN (01:18)
[2018-07-16] MEDS: ACETAMINOPHEN 325 MG TAB PO PRN (01:18)
[2018-07-16] MEDS: POTASSIUM CHLORIDE 40 MEQ in SOD CHLORIDE 0.9% 1,000 ML IV SCH (05:53)
[2018-07-16] MEDS ORDERED: LEVOFLOXACIN 500 MG TAB PO SCH (06:00)
[2018-07-16] MEDS: ASPIRIN 81 MG TAB PO SCH (08:02)
[2018-07-16] MEDS: AMLODIPINE 10 MG TAB PO SCH (08:03)
--- NOTE | 2018-07-16 12:43 | DS ---
Date/Time of Note Date/Time of Note DATE: 07/16/18 TIME: 12:32 Discharge Summary Admission/Discharge Info Admit Date/Time Jul 14, 2018 at 19:10 Discharge Date/Time Discharge Diagnosis E. coli UTI Chronic leukopenia, stable, may be related to hepatitis Chronic benign left frontal lobe meningioma unchanged for the last 7 years -Copies of 2011 MRI to be scanned into the chart Status post hypertensive emergency Hypertension with good control Status post sepsis Chronic migraine headaches, intermittent, stable Chronic psoriasis with acute flare Stable transaminitis likely secondary to hepatitis, chronic ? Resolved hepatitis B Hepatitis C positive Patient Condition: Stable Consults Neurology: Nighat Klein . Procedures See hospital course . Hospital Course 62-year-old female who was admitted with dizziness abdominal pain nausea vomiting and was found to be secondary to sepsis from UTI. She was worked up however because she does have a history of a previous stroke and she underwent MRI of the brain carotid Dopplers as well as a CT scan of the brain. The only significant finding was a calcified lesion in the left frontal lobe cortex I was found to be meningioma. Patient has copies of her previous MRI from 2011 that showed that this meningioma was present at that time and it is unchanged in size or morphology. Incidentally though she did have transaminitis that was worked up and she was found to be positive for hepatitis B and C antibodies. She is being discharged at this time to continue follow-up outpatient with GI and her primary care doctor for further management of these. It has been communicated to her and her family in detail, questions have been answered. She has been assessed in detail by myself and is stable for discharge. . Home Meds Active Scripts Betamethasone Dipropionate* (Betamethasone Dipropionate*) 0.05% - 15 Gm Oint, 1 APPLIC TOP BID, #60 TUBE 1 Refill APPLY TO: Prov:GISSELLE PEREZDana Rashid. 07/16/18 Aspirin (Aspirin) 81 Mg Chew, 81 MG PO DAILY, #30 TAB 1 Refill Prov:GISSELLE PEREZDana Rashid. 07/16/18 Amlodipine Besylate* (Amlodipine Besylate*) 10 Mg Tablet, 10 MG PO DAILY, #30 TAB 1 Refill Prov:GISSELLE PEREZDana Mike. 07/16/18 Levofloxacin* (Levaquin*) 500 Mg Tablet, 500 MG PO DAILY@06, #3 TAB Prov:APOLLO PEREZ 07/16/18 Hydrocodone/Acetaminophen ([place] 5-325 Tablet) 1 Each Tablet, 1 TAB PO Q6H PRN for PAIN, #20 TAB Prov:ANASTACIO MACHADO PA-C 06/21/17 Ibuprofen* (Motrin*) 800 Mg Tab, 800 MG PO Q6, #30 TAB Prov:ANASTACIO MACHADO PA-C 06/21/17 Follow-up Plan You need to follow up with 1. GI / Hepatology : for your Hepatitis management Name, Degree: Marguerite Mascorro MD Specialty: Gastroenterology Office Address: [address] [address] Office Office 2. Dermatology: for your psoriasis Authorization has been requested from your insurance, they should be in touch with you. 3. Also Followup with your primary doctor within the next 1-2 weeks. 4. Review your medication list with your nurse before leaving and if you need new prescriptions please let your nurse know. 5. No change I may have made changes to your home medications or given you new prescriptions, please let your primary doctor know as well. 6. Stay compliant with your medications and report any side effects to your PCP or pharmacist. 7. Return to the ER if you have any concerns and cannot reach your doctors or call your insurance company, they usually have a nurse that can help you. Primary Care Provider Fred Cosby Time spent on discharge: > 30 minutes Pending Labs Laboratory Tests Test 07/15/18 19:10 Hepatitis B Surface Antigen NEGATIVE (NEGATIVE) Hepatitis B Surface Antibody POSITIVE (NEGATIVE) APOLLO PEREZ Jul 16, 2018 12:43
[2018-07-16] MEDS ORDERED: ASPI-831 PO (13:00)
[2018-07-16] MEDS ORDERED: AMLO-147 PO (13:00)
[2018-07-16] MEDS ORDERED: LEVO500T48 PO (13:00)
[2018-07-16] MEDS ORDERED: BTM.05O15 TOP (13:00)
--- NOTE | 2018-07-16 13:01 | PDOCDIS ---
Discharge Instructions DIAGNOSIS Discharge Diagnosis Resolved hepatitis B Hepatitis C positive Stable transaminitis likely secondary to hepatitis, chronic E. coli UTI Chronic leukopenia, stable, may be related to hepatitis Chronic benign left frontal lobe meningioma unchanged for the last 7 years -Copies of 2011 MRI to be scanned into the chart Status post hypertensive emergency Hypertension with good control Status post sepsis Chronic migraine headaches, intermittent, stable Chronic psoriasis with acute flare CONDITION [id number] Patient Condition: [id number] Stable HOME CARE INSTRUCTIONS: [id number] Diet Instructions: [id number] Reduced Calorie ACTIVITY: [id number] Activity Restrictions: [id number] Slowly Increase Activity Rest between Activity FOLLOW UP/APPOINTMENTS Follow-up Plan You need to follow up with 1. GI / Hepatology : for your Hepatitis management Name, Degree: Marguerite Mascorro MD Specialty: Gastroenterology Office Address: [address] [place] [address] Office Office 2. Dermatology: for your psoriasis Authorization has been requested from your insurance, they should be in touch with you. 3. Also Followup with your primary doctor within the next 1-2 weeks. 4. Review your medication list with your nurse before leaving and if you need new prescriptions please let your nurse know. 5. No change I may have made changes to your home medications or given you new prescriptions, please let your primary doctor know as well. 6. Stay compliant with your medications and report any side effects to your PCP or pharmacist. 7. Return to the ER if you have any concerns and cannot reach your doctors or call your insurance company, they usually have a nurse that can help you. APOLLO PEREZ Jul 16, 2018 13:01
--- NOTE | 2018-07-16 13:56 | NUR ---
PT NOTE [facility] Patient: Marcela Duenas : 1955 Age/Sex: 62/F Unit#: [id number] Room/Bed: 510/B User: Ariana Painting PTA Date: 07/16/18 13:30 Type: PT Technical Record Therapy day number 2 Subjective Current complaint of pain Pain Scale NUMERIC Pain Intensity 3 (0-10) Patient Stated Goal for Pain Relief 0 (0-10) Pain Level Comment R LE and R ankle Pre Treatment Vital Signs Stable Yes - 159/71 mmHg, 825 bpm, 93% O2 sat on RA Transfer Training Start Time 13:30 Supine to Sit Minimum Assist Transfer Sit to Stand Ability Minimum Assist Bed Mobility Sit to Supine Minimum Assist Additional Mobility Comments HOB elevated Transfer Training End Time 13:45 Total Transfer Training Time 15 min (8-127) Patient uses wheelchair Not Applicable Gait Training Start Time 13:46 Gait Assist Levels Stand by Assist Assistive Devices Front Wheel Walker Ambulation Distance 40 feet Additional Gait Comments reciprocal gait, slow marii, occasional 3 point gait Gait Training End Time 13:56 Total Gait Training Treatment Time 10 min (8-127) Weight Bearing Assessment Label Bilat Lower Extremity Weight Bearing Status Full Weight Bearing Static Sitting Balance Good Dynamic Sitting Balance Good Standing Static Balance Fair plus Dynamic Standing Balance Fair plus Additional Balance Assessments Comments with FWW Safety Judgement Good Activity Tolerance Fair Equipment Present A pump IV pump Post Treatment Pain Intensity 2 0-10 Quality Indicators SOB Upon Exertion Variance Documentation see PT note Total Treament Time 25 min (8-127) Total Minutes 25 Total Units 2 PT Technical Record Comment PT NOTE S: Pt c/o R thigh and R ankle pain. Pt states she has had same R ankle pain for about 2 weeks that increases with weight bearing. Agreed to skilled PT. Cleared by MAGDALENA Christianson. O: Received awake in semi-mccarthy with daughter at bedside. See tech record for assist levels. Daughter assisted with transfer to EOB. Pt declined gait belt regardless of pt education on fall precaution. STS with FWW. Gait training with FWW, reciprocal gait initially, slow marii, regressed to 3 point gait d/t fatigue; pt reported improved ankle pain with ambulation. Returned back to bed, min A with R LE. Post tx vitals: 159/71 mmHg, 82 bpm, 93% O2 sat on RA. Left in semi-mccarthy, call light and all necessities within reach. Informed RN. A: Pt kaleb tx fairly. Pt education on use of AD as fall precuation; pt continues to decline FWW for home despite recommendation. SOB upon exertion. Decreased gait distance as a result of decreased endurance. P: Continue with POC.
[2018-07-16] MEDS ORDERED: BETAMETHASONE 0.05% 15 GM OINT TOP SCH (14:00)
--- NOTE | 2018-07-16 15:06 | NUR ---
CM notes: This bid writer faxed orders to Louis SALAS event planner of [facility] for GI and dermatology f/u as OP as well as HHPT eval and treatment as needed upon jennifer Wooten RNCM
--- NOTE | 2018-07-16 15:52 | CONS ---
Assessment/Plan Assessment/Plan Hospital Course 62 yo F with multiple comorbidities who presents for evaluation of 1 month of dizziness, for which neurology is consulted. The clinical picture suggests a nonspecific dizziness. MRI brain is reassuringly without obvious acute intracranial pathology. P: Ok to defer additional neuroimaging for now asa/statin daily for secondary stroke prevention.. Other stroke risk factor modification per primary; goal BP < 130/80, Goal LDL < 70... Will follow clinically Result Diagram: 07/15/18 0605 07/15/18 0605 Results 24hrs Laboratory Tests Test 07/15/18 19:10 Hepatitis B Surface Antigen NEGATIVE Hepatitis B Surface Antibody POSITIVE H Consultation Date/Type/Reason Admit Date/Time Jul 14, 2018 at 19:10 Type of Consult Neurology Reason for Consultation persistent dizziness Requesting Provider: APOLLO PEREZ Date/Time of Note DATE: 07/16/18 TIME: 15:52 24 HR Interval Summary Free Text/Dictation Continues telemetry monitoring. Pt is without c/o dizziness today. Has c/o minor abdominal pain Exam Vital Signs Vitals Vital Signs Date Temp Pulse Resp B/P (MAP) Pulse Ox O2 O2 Flow FiO2 Time Delivery Rate 07/16/18 98.1 84 20 160/88 94 15:46 (112) 07/14/18 2.0 18:08 07/14/18 Nasal 15:09 Cannula Intake and Output 07/15/18 07/15/18 07/16/18 1414:59 22:59 06:59 IntakeIntake Total 1720 ml 350 ml BalanceBalance 1720 ml 350 ml Exam PE: Gen Appearance: No Apparent Distress HEENT: Normocephalic Cardiovascular: Regular rate Abdomen: Soft Extremities: Dry NE: The patient was alert and oriented.. Language was normal. Fund of knowledge was normal. Pupils were equal and reactive to light. There was no afferent pupillary defect. Visual garcia were normal. Funduscopic examination was limited. Extra-ocular movements were full. Ptosis was absent. There was no nystagmus. Facial sensation was normal. Face was symmetric with normal strength. Hearing was intact. Palate movements were normal. Neck strength was normal. There was normal tongue bulk and speed of movement. Tone was normal. Muscle bulk was normal. I did not see fasciculations. Arms were mildly weak to confrontation and symmetric; legs were weak (R>L). Vibration sensation was normal. Temperature and pinprick sensation was normal. Rapid alternating movements were normal. There was no dysmetria. There was no intention tremor. Gait was deferred due to bedrest. Arm and leg reflexes were 2+ and symmetric. Barnard's sign was absent. Plantar responses were flexor. EBONY WADE NP Jul 16, 2018 15:52
== END 2018-07-16 17:49 | disposition home health service (06) | DRG 872 ==
LOC: E/R 18:05 → TEL 21:48 → OBSVTOIN 07-14 19:10
PROVIDERS: ADMIT Internal Medicine; ATTEND Family Medicine
DX: A41.9 Sepsis, unspecified organism (principal); N39.0 Urinary tract infection, site not specified; B18.1 Chronic viral hepatitis B without delta-agent; E87.6 Hypokalemia; J06.9 Acute upper respiratory infection, unspecified; I10 Essential (primary) hypertension; R55 Syncope and collapse; I16.0 Hypertensive urgency; R11.2 Nausea with vomiting, unspecified; L40.9 Psoriasis, unspecified; B18.2 Chronic viral hepatitis C; R42 Dizziness and giddiness; B96.20 Unspecified Escherichia coli [E. coli] as the cause of diseases classified elsewhere; Z79.82 Long term (current) use of aspirin; Z86.73 Personal history of transient ischemic attack (TIA), and cerebral infarction without residual deficits
CPT/HCPCS: 70450; 70551; 71045; 74018; 80053; 80061; 81001; 82150; 82550; 82553; 83036; 83605; 83690; 83735; 84100; 84443; 84484; 85025; 85610; 85730; 86704; 86706; 86709; 86803; 87086; 87340; 87400; 87522; 93005; 93306; 93880; 96374; 96375; 97116; 97161; 97530; G0378; J0696; J2270; J2405; J3480; J7030